=== PATIENT | female | born 1975 | race Caucasian/White ===

== ENCOUNTER 2016-10-08 03:22 | Observation (INO) | payer OTHER ==
[~2016-10-08] VITALS: Ht 162.6 cm; Wt 103.1 kg
[~2016-10-08 03:22] MED LIST: ASA; ASPIRIN325 MG PO; BUSPAR15 MG PO; CLARITIN; KLONOPIN1 MG PO; LEXAPRO; LOPRESSOR25 MG PO; OXYCODONE; PAXIL40 MG PO; PERCOCET 10/1 TABLET PO; PLAQUENIL200 MG PO; PRAVACHOL20 MG PO; PROZAC40 MG PO; SYNTHROID; SYNTHROID200 MCG PO; TOPAMAX50 MG PO; TOPIRAMATE25 MG PO; VERAPAMIL HCL120 MG PO; WELLBUTRIN XL150 MG PO; ZANTAC300 MG PO
[2016-10-08 04:27] LABS: CHLORIDE 109 mEq/L (99-109); POTASSIUM 3.7 mEq/L (3.7-5.4); SODIUM 143 mEq/L (136-147)
[2016-10-08 04:30] LABS: GLUCOSE 111 mg/dL (70-99)
[2016-10-08 04:31] LABS: ANION GAP 11 MEQ/L (2-14)
[2016-10-08 04:32] LABS: TOTAL BILIRUBIN 0.1 mg/dL (0.0-1.0)
[2016-10-08 04:33] LABS: ALKALINE PHOSPHATASE 73 IU/L (3-129); GFR ESTIMATE (CALCULATED) > 59 mL/min/
[2016-10-08 04:34] LABS: UREA NITROGEN (BUN) 15 mg/dL (9-23)
[2016-10-08 04:35] LABS: HEMATOCRIT 37.3 % (36.0-46.0); MCH 29.8 PG (29.0-34.0); MCV 90.3 FL (83-99); PLATELET COUNT 256 K/uL (156-360); RBC DIS.WIDTH-CV 12.1 % (11.8-14.6); RBC DIS.WIDTH-SD 39.8 % (39-53); RED BLOOD COUNT 4.13 M/uL (3.80-5.20); WHITE BLOOD COUNT 13.5 K/uL (4.1-10.2)
[2016-10-08 04:40] LABS: TROP-I INTERPRETATION NEGATIVE; TROPONIN-I < 0.01 ng/mL (0.0-0.30)
[2016-10-08 04:44] LABS: QUANTITATIVE HCG < 4.0 MIU/ML
[2016-10-08 05:07] LABS: LIPASE 159 U/L (1.0-51.0)
[2016-10-08] MEDS ORDERED: LOPRESSOR25 MG PO (08:38)
[2016-10-08] MEDS ORDERED: BUSPAR15 MG PO (08:39)
[2016-10-08] MEDS ORDERED: TOPIRAMATE50 MG PO (08:39)
[2016-10-08] MEDS ORDERED: LEVO-T50 MCG PO (08:41)
[2016-10-08] MEDS ORDERED: ABILIFY5 MG PO (08:42)
[2016-10-08] MEDS ORDERED: PREDNISONE5 MG PO (08:44)
[2016-10-08] MEDS ORDERED: ZOFRAN4 MG PO (14:07)
[2016-10-08 14:39] LABS: ADD MIUA? NO; BILIRUBIN NEGATIVE; BLOOD NEGATIVE; COLOR STRAW ((YELLOW)); GLUCOSE (STRIP) NEGATIVE; KETONES NEGATIVE; LEUKOCYTES NEGATIVE; NITRITE NEGATIVE; PROTEIN (STRIP) NEGATIVE; SPECIFIC GRAVITY 1.011 (1.000-1.030); UCUL ADDED? NO; UROBILINOGEN 0.2 MG/DL (0.2-1.0)
[2016-10-08 15:30] VITALS: BP 108/61
== END 2016-10-08 15:38 | disposition home or self-care (01) ==
LOC: EME 03:22 → EDOF 05:08
PROVIDERS: Emergency Medicine; Hospitalist
DX: R07.89 Other chest pain (principal); R11.0 Nausea; R74.8 Abnormal levels of other serum enzymes; E03.9 Hypothyroidism, unspecified; Z87.74 Personal history of (corrected) congenital malformations of heart and circulatory system; R06.9 Unspecified abnormalities of breathing; F41.9 Anxiety disorder, unspecified; F32.9 Major depressive disorder, single episode, unspecified; G43.109 Migraine with aura, not intractable, without status migrainosus
CPT/HCPCS: 71010; 74176; 80053; 81003; 83690; 84484; 84702; 85027; 93005; 99281; 99285; G0378

== ENCOUNTER 2017-02-15 03:28 | Emergency (ER) | payer OTHER ==
[~2017-02-15] VITALS: Ht 152.4 cm; Wt 102.3 kg
[~2017-02-15 03:28] MED LIST changes: +ABILIFY5 MG PO; +LEVO-T50 MCG PO; +PREDNISONE5 MG PO; +TOPIRAMATE50 MG PO; +ZOFRAN4 MG PO
[2017-02-15 04:34] LABS: HEMATOCRIT 40.1 % (36.0-46.0); MCHC 33.7 G/DL (30.0-36.0); MCV 89.1 FL (83-99); MEAN PLAT.VOLUME 9.1 uM^3 (9.5-12.4); PLATELET COUNT 234 K/uL (156-360); RBC DIS.WIDTH-CV 12.5 % (11.8-14.6); RBC DIS.WIDTH-SD 40.2 % (39-53); WHITE BLOOD COUNT 9.1 K/uL (4.1-10.2)
[2017-02-15 04:53] LABS: CHLORIDE 110 mEq/L (99-109); SODIUM 139 mEq/L (136-147)
[2017-02-15 04:54] LABS: GLUCOSE 106 mg/dL (70-99)
[2017-02-15] MEDS ORDERED: PERCOCET 5/31 TABLET PO (04:54)
[2017-02-15 04:56] LABS: ANION GAP 7 MEQ/L (2-14)
[2017-02-15 04:58] LABS: GFR ESTIMATE (CALCULATED) > 59 mL/min/
[2017-02-15 04:59] LABS: UREA NITROGEN (BUN) 9 mg/dL (9-23)
[2017-02-15 05:03] LABS: TROP-I INTERPRETATION NEGATIVE; TROPONIN-I < 0.01 ng/mL (0.0-0.30)
[2017-02-15 05:06] LABS: QUANTITATIVE HCG < 4.0 MIU/ML
[2017-02-15 05:12] VITALS: BP 144/87
== END 2017-02-15 05:15 | disposition home or self-care (01) ==
LOC: EME 03:28
PROVIDERS: Physician Assistant
DX: M54.12 Radiculopathy, cervical region (principal); M25.512 Pain in left shoulder; Z88.6 Allergy status to analgesic agent; Z88.0 Allergy status to penicillin
CPT/HCPCS: 71010; 80048; 84484; 84702; 85027; 93005; 99281; 99284; J8540